=== PATIENT | male | born 1985 | race Caucasian/White ===

== ENCOUNTER 2017-08-14 16:24 | Emergency (ER) | payer MEDICAID ==
[~2017-08-14] VITALS: Ht 185.4 cm; Wt 122.7 kg
[~2017-08-14 16:24] MED LIST: CITA20TA19 PO; TRAZ-143 PO; [UNRECOGNIZED DRUG - CODE]
[2017-08-14] MEDS ORDERED: DOXY100C2 PO (17:06)
[2017-08-14 17:18] VITALS: BP 125/78
== END 2017-08-14 17:17 | disposition home or self-care (01) ==
LOC: ER 16:25
DX: L03.116 Cellulitis of left lower limb (principal); F12.10 Cannabis abuse, uncomplicated; Z88.8 Allergy status to other drugs, medicaments and biological substances
CPT/HCPCS: 99283

== ENCOUNTER 2018-08-15 22:23 | Emergency (ER) | payer MEDICAID ==
[~2018-08-15] VITALS: Ht 185.4 cm; Wt 105.0 kg
[~2018-08-15 22:23] MED LIST changes: -TRAZ-143 PO; +TRAZ-218 PO
[2018-08-15 22:28] VITALS: BP 136/70
[2018-08-15] MEDS ORDERED: IBUP-1984 PO (22:54)
[2018-08-15] MEDS ORDERED: PENI250T2 PO (22:54)
--- NOTE | 2018-08-15 23:00 | NUR ---
PT SEEN AND DC'D BY PROVIDER
== END 2018-08-15 23:00 | disposition home or self-care (01) ==
LOC: ER 22:24
DX: K04.7 Periapical abscess without sinus (principal); F12.90 Cannabis use, unspecified, uncomplicated; Z56.0 Unemployment, unspecified; Z88.8 Allergy status to other drugs, medicaments and biological substances; Z79.899 Other long term (current) drug therapy
CPT/HCPCS: 99283

== ENCOUNTER 2019-04-23 20:31 | Emergency (ER) | payer MEDICAID ==
[~2019-04-23] VITALS: Ht 185.4 cm; Wt 90.9 kg
[~2019-04-23 20:31] MED LIST changes: -TRAZ-218 PO; +TRAZ-251 PO
[2019-04-23 20:40] VITALS: BP 117/66
== END 2019-04-23 23:07 | disposition home or self-care (01) ==
LOC: ER 20:31
DX: F15.90 Other stimulant use, unspecified, uncomplicated (principal); F12.90 Cannabis use, unspecified, uncomplicated; F11.90 Opioid use, unspecified, uncomplicated; F14.90 Cocaine use, unspecified, uncomplicated; Z56.0 Unemployment, unspecified; Z88.8 Allergy status to other drugs, medicaments and biological substances; Z79.899 Other long term (current) drug therapy
CPT/HCPCS: 99281

== ENCOUNTER 2019-05-06 00:51 | Emergency (ER) | payer MEDICAID, OTHER ==
[~2019-05-06] VITALS: Ht 185.4 cm; Wt 90.9 kg
[2019-05-06 01:05] VITALS: BP 136/88
== END 2019-05-06 03:51 ==
LOC: ER 00:53
DX: S20.211A Contusion of right front wall of thorax, initial encounter (principal); S00.432A Contusion of left ear, initial encounter; F15.90 Other stimulant use, unspecified, uncomplicated; F12.90 Cannabis use, unspecified, uncomplicated; F11.90 Opioid use, unspecified, uncomplicated; F14.90 Cocaine use, unspecified, uncomplicated; Z88.8 Allergy status to other drugs, medicaments and biological substances; Z79.899 Other long term (current) drug therapy; X58.XXXA Exposure to other specified factors, initial encounter; Y93.89 Activity, other specified; Y92.148 Other place in prison as the place of occurrence of the external cause; Y99.8 Other external cause status
CPT/HCPCS: 70450; 71045; 99284